=== PATIENT | male | born 2005 | race Two or more races ===

== ENCOUNTER 2023-11-12 18:42 | Emergency (ER) | payer MEDICAID, OTHER ==
[~2023-11-12] VITALS: Ht 170.2 cm; Wt 68.3 kg
[2023-11-12] MEDS: KETOROLAC TROMETH 30 MG/ML 1ML VIAL IV ONE (19:15)
[2023-11-12] MEDS: ONDANSETRON HCL 4 MG/2 ML VIAL IV ONE (19:15)
[2023-11-12] MEDS: SODIUM CHLORIDE 0.9% 1,000 ML IV ONE (19:15)
[2023-11-12 20:10] LABS: Chloride 101 mmol/L (98-107); Potassium 4.5 mmol/L (3.5-5.1); Sodium 134 mmol/L (136-145)
[2023-11-12 20:11] LABS: Anion Gap 9 (5-15); Calcium 10.1 mg/dL (8.7-10.4); Carbon Dioxide 24 mmol/L (20-30)
[2023-11-12 20:14] LABS: Basophils # (auto) 0.1 10 ^3/uL (0-0.2); Basophils % (auto) 0.6 % (0.0-2.0); Eosinophils # (auto) 0 10 ^3/uL (0-0.8); Eosinophils % (auto) 0.3 % (0.0-7.0); Hematocrit 47.2 % (41.0-53.0); Hemoglobin 16.4 g/dL (13.5-17.5); Lymphocytes # (auto) 1.1 10 ^3/uL (0.4-5.4); Lymphocytes % (auto) 8.3 % (10.0-50.0); Mean Corpuscular Hgb Conc. 34.6 g/dL (32.0-36.0); Mean Corpuscular Volume 86.7 fL (80.0-100.0); Monocytes # (auto) 0.6 10 ^3/uL (0-1.3); Monocytes % (auto) 4.8 % (0.0-12.0); Neutrophils # (auto) 11.4 10 ^3/uL (1.6-8.6); Platelet Count (auto) 279 10^3/uL (140-450); Red Blood Cells 5.45 10^6/uL (4.5-5.90); White Blood Cell 13.3 10^3/uL (4.4-10.8)
[2023-11-12 20:16] LABS: BUN/Creatinine Ratio 11.6 (10.0-20.0); Blood Urea Nitrogen 19 mg/dL (9-23)
[2023-11-12 20:27] LABS: Glucose 436 mg/dL (74-106)
[2023-11-12 20:45] VITALS: TEMP 98.4
[2023-11-12 22:15] VITALS: RESP 16
[2023-11-12] MEDS: ACETAMINOPHEN 325 MG TAB PO ONE (22:46)
[2023-11-12] MEDS: InsuLIN REG 1unit/0.01ml Soln (100units/ml) IV ONE (23:41)
[2023-11-13 00:40] VITALS: BP 117/80; PULSE 111; RESP 18; O2SAT 98
== END 2023-11-13 00:51 ==
LOC: ER 18:42 → EDBD 18:42 → EEVIPCON 18:42 → ER 11-13 00:51
DX: S82.141A Displaced bicondylar fracture of right tibia, initial encounter for closed fracture (principal); E10.65 Type 1 diabetes mellitus with hyperglycemia; X58.XXXA Exposure to other specified factors, initial encounter; Y93.89 Activity, other specified; Y92.89 Other specified places as the place of occurrence of the external cause; Y99.8 Other external cause status
CPT/HCPCS: 29505; 36415; 73552; 73562; 73590; 73700; 80048; 82962; 85025; 96361; 96374; 99285; J1815; J7030